=== PATIENT | female | born 1945 | race Hispanic/Latino ===

== ENCOUNTER 2019-01-13 21:06 | Emergency (ER) | payer MEDICARE, OTHER ==
[2019-01-13] MEDS ORDERED: ACETAMINOPHEN EXTRA STRENGTH 500 MG TABLET ONE (21:17)
[2019-01-13] MEDS ORDERED: BENZOCAINE/LANOLIN/ALOE VERA 60 ML AEROSOL TP ONE (21:20)
== END 2019-01-13 22:10 | disposition home or self-care (01) ==
LOC: EDH 21:06
DX: T23.102A Burn of first degree of left hand, unspecified site, initial encounter (principal); T25.122A Burn of first degree of left foot, initial encounter; T31.0 Burns involving less than 10% of body surface; I10 Essential (primary) hypertension; Z90.710 Acquired absence of both cervix and uterus; X12.XXXA Contact with other hot fluids, initial encounter; Y93.89 Activity, other specified; Y92.098 Other place in other non-institutional residence as the place of occurrence of the external cause; Y99.8 Other external cause status
CPT/HCPCS: 16000

== ENCOUNTER → 2020-04-03 | Outpatient (CLI) | payer MEDICARE, OTHER | END | disposition home or self-care (01) | LOC: RAH 08:57 | PROVIDERS: ATTEND Internal Medicine | DX: K44.9 Diaphragmatic hernia without obstruction or gangrene (principal); K80.20 Calculus of gallbladder without cholecystitis without obstruction; K57.30 Diverticulosis of large intestine without perforation or abscess without bleeding; J98.11 Atelectasis; I70.90 Unspecified atherosclerosis; Z90.710 Acquired absence of both cervix and uterus | CPT/HCPCS: 74176 ==

== ENCOUNTER 2020-09-13 10:15 | Day surgery (SDC) | payer MEDICARE ==
[2020-09-08 14:48] LABS: BASOPHILS % (AUTO) 0.4 % (0.0-5.0); EOSINOPHILS % (AUTO) 2.6 % (0.0-8.0); HEMATOCRIT 39.4 % (36-48); LYMPHOCYTES % (AUTO) 33.8 % (21.0-51.0); MEAN CORPUSCULAR HEMOGLOBIN 30.3 pg (27.0-33.0); MEAN CORPUSCULAR HGB CONC 32.7 g/dL (32.0-36.0); MEAN CORPUSCULAR VOLUME 92.5 fL (79-99); MONOCYTES % (AUTO) 7.5 % (3.0-13.0); NEUTROPHILS % (AUTO) 55.5 % (40.0-77.0); PLATELET COUNT (AUTO) 209 K/uL (130-400); RED BLOOD CELL COUNT(AUTO) 4.26 MIL/uL (4.00-5.50); RED CELL DISTRIBUTION WIDTH 13.2 % (11.0-15.5); WHITE BLOOD COUNT (AUTO) 4.9 K/uL (4.8-10.8)
[2020-09-08 15:01] LABS: INR 0.94 (0.85-1.15); PROTHROMBIN TIME 10.3 SEC (9.6-11.6)
[2020-09-08 15:02] LABS: PARTIAL THROMBOPLASTIN TIME 26.7 SEC (26.3-35.5)
[2020-09-08 15:03] LABS: ALBUMIN 3.8 g/dL (3.5-5.0); BILIRUBIN,TOTAL 0.2 mg/dL (0.2-1.0); CREATININE 0.8 mg/dL (0.5-1.5); POTASSIUM 3.9 mmol/L (3.5-5.1); TOTAL PROTEIN, SERUM 7.9 g/dL (6.0-8.3)
[2020-09-12 13:40] VITALS: BP 147/65
[2020-09-13] VITALS (19 sets, daily range): BP systolic 105–146; BP diastolic 47–88
[~2020-09-13] VITALS: Ht 157.5 cm; Wt 83.7 kg
[~2020-09-13 10:15] MED LIST: ASPI-1443 PO; CEFAZOLIN SODIUM 1 GM VIAL IVP ONE; CYAN250014 PO; LEVO100T12 PO; LISI20TA24 PO; LOVA10TA2 PO; SODIUM CHLORIDE 0.9% 1000ML 1,000 ML IV SCH; TIZA4CAP8 PO
[2020-09-13] MEDS ORDERED: CEFAZOLIN SODIUM 1 GM VIAL ONE (10:32)
[2020-09-13] MEDS ORDERED: LACTATED RINGERS 1000ML 1,000 ML IV ONE (10:32)
[2020-09-13] MEDS ORDERED: DEXAMETHASONE SOD PHOSPHATE 10MG/ML 1ML VIAL ONE (10:41)
[2020-09-13] MEDS ORDERED: LIDOCAINE PF 2% 5ML ABBOJECT ONE (10:41)
[2020-09-13] MEDS ORDERED: GLYCOPYRROLATE 1 MG/5 ML SYRINGE ONE (10:41)
[2020-09-13] MEDS ORDERED: SUCCINYLCHOLINE CHLORIDE 20 MG/ML 10 ML VIAL ONE (10:41)
[2020-09-13] MEDS ORDERED: NEOSTIGMINE 5MG/5ML SYR IV ONE (10:42)
[2020-09-13] MEDS ORDERED: MIDAZOLAM HCL 1 MG/ML 2ML VIAL ONE (10:42)
[2020-09-13] MEDS ORDERED: PROPOFOL 10 MG/ML 20ML VIAL IV ONE (10:42)
[2020-09-13] MEDS ORDERED: ONDANSETRON HCL 4 MG/2 ML VIAL ONE (10:43)
[2020-09-13] MEDS ORDERED: ROCURONIUM 10MG/1ML SYR 10 MG/ML ML ONE (10:43)
[2020-09-13] MEDS ORDERED: FENTANYL CITRATE PF 50 MCG/1 ML 2ML VIAL ONE ×2 (10:44→12:41)
[2020-09-13] MEDS ORDERED: BUPIVACAINE/PF 0.5% 30ML VIAL ONE (10:53)
[2020-09-13] MEDS ORDERED: INDOCYANINE GREEN 25 MG VIAL IJ ONE (11:43)
[2020-09-13] MEDS ORDERED: EPHEDRINE SULFATE 50 MG/ML AMPULE ONE (12:54)
[2020-09-13] MEDS ORDERED: MEPERIDINE-PF 25 MG/ML SYG ONE (13:55)
[2020-09-13] MEDS ORDERED: ACETAMINOPHEN-CODEINE 300/30MG TAB ONE (14:58)
== END 2020-09-13 16:00 | disposition home or self-care (01) ==
LOC: DAH 10:15
PROVIDERS: ATTEND Student in an Organized Health Care Education/Training Program
DX: K80.13 Calculus of gallbladder with acute and chronic cholecystitis with obstruction (principal); I10 Essential (primary) hypertension; E78.00 Pure hypercholesterolemia, unspecified; Z90.710 Acquired absence of both cervix and uterus; Z20.828 Contact with and (suspected) exposure to other viral communicable diseases; Z79.01 Long term (current) use of anticoagulants; Z79.899 Other long term (current) drug therapy
CPT/HCPCS: 36415; 47562; 71045; 80053; 85025; 85610; 85730; 93005; A4215; A4216; A4221; A4222; A4223; A4649 ×2; A4663; A4930; A6260; C1769 ×2; C9803; G0168; J0330; J0690; J1100; J2001; J2175; J2250; J2405; J2704; J2710; J3010 ×2; J3490 ×3; J7030; J7120 ×2; U0003

== ENCOUNTER → 2024-01-02 | Outpatient (CLI) | payer OTHER, MEDICARE ==
[~2024-01-02] MED LIST changes: -CEFAZOLIN SODIUM 1 GM VIAL IVP ONE; -SODIUM CHLORIDE 0.9% 1000ML 1,000 ML IV SCH
== END | disposition home or self-care (01) ==
LOC: RAH 11:28
PROVIDERS: ATTEND Internal Medicine
DX: M19.071 Primary osteoarthritis, right ankle and foot (principal); M77.31 Calcaneal spur, right foot; M79.89 Other specified soft tissue disorders
CPT/HCPCS: 73630

== ENCOUNTER → 2024-05-04 | Outpatient (CLI) | payer OTHER | END | disposition home or self-care (01) | LOC: RAH 14:45 | PROVIDERS: ATTEND Internal Medicine | DX: Z13.6 Encounter for screening for cardiovascular disorders (principal); I13.10 Hypertensive heart and chronic kidney disease without heart failure, with stage 1 through stage 4 chronic kidney disease, or unspecified chronic kidney disease; N18.9 Chronic kidney disease, unspecified | CPT/HCPCS: 75571 ==

== ENCOUNTER → 2025-04-07 | Outpatient (CLI) | payer OTHER ==
--- NOTE | 2025-04-07 15:33 | HMCIMG ---
SKULL - 4 VIEWS INDICATION: Fall COMPARISON: None FINDINGS: AP, left and right lateral, and Water's views. No evidence for depressed or displaced skull fracture. Nasal bone is intact. Nasal septum is midline. Orbital kendall are intact. Visible paranasal sinuses and mastoid air cells are clear. IMPRESSION: No evidence for depressed or displaced skull fracture.
== END | disposition home or self-care (01) ==
LOC: RAH 08:44
PROVIDERS: ATTEND Internal Medicine
DX: S09.90XA Unspecified injury of head, initial encounter (principal); X58.XXXA Exposure to other specified factors, initial encounter; Y93.89 Activity, other specified; Y92.89 Other specified places as the place of occurrence of the external cause; Y99.8 Other external cause status
CPT/HCPCS: 70260